=== PATIENT | male | born 1970 | race African-American/Black ===

== ENCOUNTER 2017-09-02 10:45 | Emergency (ER) | payer OTHER ==
[2017-09-02 10:57] VITALS: BP 152/95; PULSE 78; TEMP 98.3; BMI 35.5
--- NOTE | 2017-09-02 11:40 | PDOC ---
History of Present Illness - General Chief Complaint: Chest Pain Stated Complaint: CHEST PAIN Time Seen by Provider: 09/02/17 11:01 - History of Present Illness Initial Comments: 09/02/17 11:35 The patient is a 46 yo m w/ PMH DM, HTN, glaucoma (legally blind), acute pancreatitis comes into the ED c/o worsening chest pain for the past 8 months and syncopal episodes. The patient had a thoracoscopy and biopsy in October for a mediastinal mass (biopsy benign). Since this procedure, he has been complaining of numbness along the right side of his chest stretching from the center of the sternum to the right hand. The patient began regaining sensation in december, at which time he experienced a tearing, cramping, 7/10 pain in his right chest in the pectoral area. The pain is exacerbated by movement or touch and has no alleviating symptoms. The patient has been following with a pain management doctor and states that pain has been refractory to multiple oral medications and injections. The pain has been getting worse over time and became associated with multiple syncopal episodes. During these episodes, the patient describes feeling the pain, then lightheadedness before finding himself either leaning on his knee or prone on the floor. Patient does not remember the fall, only remembers waking up on the floor. Syncopal episodes are related to getting up either from a chair or from bed. Patient denies fever, chills, abdominal pain, palpitations. 09/02/17 13:48 Past History - Travel Traveled outside of the country in the last 30 days: No Close contact w/someone who was outside of country & ill: No - Past Medical History Allergies/Adverse Reactions: Allergies Allergy/AdvReac Type Severity Reaction Status Date / Time No Known Allergies Allergy Verified 09/02/17 10:53 Home Medications: Ambulatory Orders Gabapentin 300 mg PO TID #90 cap 09/02/17 Lisinopril 0 mg PO DAILY 09/02/17 Metformin HCl [Glucophage -] 500 mg PO BID 09/02/17 Simvastatin 20 mg PO DAILY 09/02/17 Diabetes: Yes HTN: Yes Other medical history: mediastinal mass, acute pancreatitis, glaucoma - Surgical History Cholecystectomy: Yes Lung Surgery: Yes (thorascopy and bx mediastinal mass) - Suicide/Smoking/Psychosocial Hx Smoking History: Never smoked Review of Systems - Review of Systems Constitutional: No: Chills, Fever, Malaise HEENTM: Yes: Other (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 No: Cough, SOB with Exertion Cardiac (ROS): Yes: Chest Pain, Lightheadedness. No: Palpitations, Chest Tightness ABD/GI: No: Symptoms Reported Musculoskeletal: Yes: Muscle Pain. No: Back Pain, Joint Pain Integumentary: No: Symptoms Reported Neurological: Yes: Numbness, Tingling *Physical Exam - Vital Signs Last Vital Signs Temp Pulse Resp BP Pulse Ox 98.3 F 78 19 152/95 96 09/02/17 10:53 09/02/17 10:53 09/02/17 10:53 09/02/17 10:53 09/02/17 10:53 - Physical Exam General Appearance: Yes: Appropriately Dressed. No: Apparent Distress HEENT: positive: EOMI. negative: MARYANN (pupil nonreactive to light on left) Neck: positive: Trachea midline. negative: Tender ED Treatment Course - LABORATORY CBC & Chemistry Diagram: 09/02/17 11:43 09/02/17 11:43 Medical Decision Making - Medical Decision Making 09/05/17 07:17 09/02/17 13:24 The patient is a 46 yo m w/ PMH DM, HTN, glaucoma comes into the ED c/o worsening chest and arm pain since december as well as multiple syncopal episodes. The patient's description of the pain is indicative of a nerve origin, though cardiac and pulmonary etiology must also be ruled out. The patient admits to not taking his gabapentin as prescribed. -CBC, CMP -cardiac profile -CTA Chest -ketorolac IV -CXR 09/02/17 16:00 -CXR, CTA, labs WNL -added lipase -contacted the patient's pain management doctor and the case was discussed. He agrees with the plan to reinforce the proper use of his gabapentin and follow up with him as scheduled. -will write for 300mg gabapentin TID -encouraged the importance of f/u -patient will be stable for discharge if his lipase returns WNL -Liase WNL, Patient d/c w/ instructions to f/u in the [facility] *DC/Admit/Observation/Transfer Diagnosis at time of Disposition: Neuropathic pain - Discharge Dispostion Disposition: HOME Admit: No - Prescriptions Prescriptions: Gabapentin 300 mg PO TID #90 cap - Referrals Referrals: STAFF,NOT ON [Primary Care Provider] - - Patient Instructions Printed Discharge Instructions: Neuropathic Pain, Gabapentin Additional Instructions: Please take your Gabapentin three times per day as prescribed. You should follow up with your pain management doctor as scheduled. If you experience worsening chest pain, worsening shortness of breath, fevers, chills or if any of your symptoms become worse, please call your doctor or return to the emergency department. - Post Discharge Activity
[2017-09-02 12:10] LABS: BASOPHIL 0.7 % (0-2.0); EOSINOPHIL 0.5 % (0-4.5); MCH 32.2 pg (25.7-33.7); MCHC 34.9 g/dl (32.0-35.9); MEAN CELL VOLUME 92.2 fl (80-96); MEAN PLT VOLUME 7.8 fl (7.5-11.1); NEUTROPHILS 60.9 % (42.8-82.8); PLATELET COUNT 324 K/MM3 (134-434); RDW 13.4 % (11.9-15.9); WHITE BLOOD COUNT 5.7 K/mm3 (4.0-10.0)
--- NOTE | 2017-09-02 12:10 | PDOC ---
Attending Attestation - Medical Decision Making 09/02/17 12:[address] Jose Calderon. [phone] 09/02/17 13:12 Placed [address] Sabine Stover with no successful attempts at speaking to anyone. Phone hangs up on other end after long dial tone. [phone] 09/02/17 14:[address] Calderon a second time. <oLna Bustamante A - Last Filed: 09/02/17 14:44> - Resident Resident Name: Deejay Red - ED Attending Attestation I have performed the following: I have examined & evaluated the patient, The case was reviewed & discussed with the resident, I agree w/resident's findings & plan, Exceptions are as noted - HPI HPI: 09/02/17 12:10 46 yo m w/ PMH DM, HTN, glaucoma (legally blind), acute pancreatitis presents to the ED c/o worsening chest pain for the past 5 months and syncopal episode last week. Pt reports that he had a biopsy for a chest mass 5 months ago ( benign by report of pt) at [facility] and since then, has had constant right sided, pleuritic chest pain that feels like needles and someone "clawing across his chest." He has seen his PMD for this pain (Dr. Stover) and she did a cardiac work up that was normal by his report. He also reports seeing a pain management doctor who prescribed gabapentin which he states doesn't help although he has not been taking it BID as prescribed. He presented to the ED today due to the persistence of his CP and because he had a syncopal episode last week. He describes watching TV last week when he stood up and felt severe pain on the R side of his chest, became lightheaded and passed out for less than 1 minute. No associated CP, diaphoresis, SOB, palpitations. Was back at his baseline within a few minutes. No tongue biting or urine incontinence. Denies head strike or injuries. No syncopal episodes since then. Has not been taking any other medications for pain control. Reports feeling SOB because of the pain when he breathes. Denies calf swelling or edema. Denies fevers, chills , SOB, N/V/D, diaphoresis, abd pain, LE edema, rashes, headache, weakness. - Physicial Exam PE: 09/02/17 12:41 GENERAL: Awake, alert, and fully oriented, in no acute distress HEAD: No signs of trauma EYES: PERRLA, EOMI, sclera anicteric, conjunctiva clear ENT: Auricles normal inspection, hearing grossly normal, nares patent, oropharynx clear without exudates. Moist mucosa NECK: Normal ROM, supple, no lymphadenopathy, JVD, or masses LUNGS: Breath sounds equal, clear to auscultation bilaterally. No wheezes, and no crackles HEART: Regular rate and rhythm, normal S1 and S2, no murmurs, rubs or gallops. + reproducible pain all along the R chest with minimal palpation of skin ABDOMEN: Soft, nontender, normoactive bowel sounds. No guarding, no rebound. No masses EXTREMITIES: Normal range of motion, no edema. No clubbing or cyanosis. No cords, erythema, or tenderness NEUROLOGICAL: Normal speech, cranial nerves intact, negative pronator drift, 5/ 5 strength in all 4 extremities, normal sensation to light touch in all 4 extremities, normal cerebellar exam, normal gait, normal reflexes and tone SKIN: Warm, Dry, normal turgor, no rashes or lesions noted. - Medical Decision Making Labs and CTA unremarkable. I spoke with the patient's pain management physician Dr. Calderon who recommends that we add a lipase to make sure this pain is not pancreatitis as pt has had pancreatitis in the past. Lipase was negative. Dr. Calderon recommends we encourage the patient to take his gabapentin ( 600mg TID) as prescribed which we discussed with the patient and his . I discussed the physical exam findings, ancillary test results and final diagnoses with the patient. I answered all of the patient's questions. The patient was satisfied with the care received and felt comfortable with the discharge plan and treatment plan. The patient will call their primary care physician within 24 hours to arrange follow-up and will return to the Emergency Department with any new, persistent or worsening symptoms. 09/02/17 12:43 46-year-old male history of hypertension, diabetes, biopsy 5 months ago of mass in his chest presents with 5 months of right-sided chest pain and a syncopal episode last week. Vitals are unremarkable. Exam with exquisite tenderness to palpation with minimal palpation of the right side of his chest. EKG is nonischemic. Syncopal episode appears to be triggered by pain, and is likely vasovagal in nature. Pt with no episodes since and syncope was not a/w cp, sob, diaphoresis, palpitations. Pain appears to be neuropathic secondary to this procedure and possible nerve damage however given his risk factors of recent surgery, hypertension, and diabetes will do a cardiac workup and CTA to evaluate for pulmonary embolism. Will also touch base with the patient's primary doctor and pain management doctor if ED workup is negative for a suitable DC plan. -labs -CXR -toradol -CTA -call pmd/pain management -reassess <Joselyn Portillo - Last Filed: 09/10/17 16:18> Heart Score/ECG Review - History History: Slightly suspicious - Electrocardiogram EKG: Normal - Age Age: 45-65 - Risk Factors Risk Factors Heart Score: Yes Hx Hypertension, Yes Hx Diabetes Based on the list above the patient has:: 1-2 risk factors - Troponin Troponin: </= normal limit - Score Heart Score - Total: 2 #1 09/02/17 12:42 Twelve-lead EKG was performed and reviewed by me. Normal sinus rhythm, rate 80. Normal intervals. No ST elevations or T-wave inversions. <Joselyn Portillo - Last Filed: 09/10/17 16:18>
[2017-09-02 12:33] LABS: ALBUMIN 4.3 g/dl (3.4-5.0); ANION GAP 12 (8-16); BILIRUBIN,TOTAL 0.6 mg/dL (0.2-1.0); CALCIUM 9.2 mg/dL (8.5-10.1); CO2 24 mmol/L (21-32); GLUCOSE,RANDOM 188 mg/dL (74-106); SGOT/AST 45 U/L (15-37); SGPT/ALT 109 U/L (12-78); TOT PROT 8.5 g/dl (6.4-8.2)
[2017-09-02 12:35] LABS: ALK PHOS 260 U/L (45-117); CPK 239 IU/L (39-308); TROPONIN I < 0.02 ng/ml (0.00-0.05)
[2017-09-02] MEDS ORDERED: KETOROLAC TROMETHAMINE 15 MG/ML VIAL IVPUSH ONE (12:54)
[2017-09-02] MEDS ORDERED: KETOROLAC TROMETHAMINE 15 MG/ML VIAL ONE (13:05)
--- NOTE | 2017-09-05 11:24 | EKG ---
Test Reason : Blood Pressure : / mmHG Vent. Rate : 080 BPM Atrial Rate : 080 BPM P-R Int : 160 ms QRS Dur : 080 ms QT Int : 358 ms P-R-T Axes : 043 -20 029 degrees QTc Int : 412 ms NORMAL SINUS RHYTHM POOR R WAVE PROGRESSION NO PREVIOUS ECGS AVAILABLE REPEAT EKG IF CLINICALLY INDICATED Confirmed by CARLOS CABA MD ([id number]) on 09/05/2017 11:23:36 AM Referred By: Confirmed By:CARLOS CABA MD
== END 2017-09-02 18:10 | disposition home or self-care (01) ==
LOC: JER 10:45
PROC: 3E0333Z Introduction of Anti-inflammatory into Peripheral Vein, Percutaneous Approach (ICD-10-PCS; principal; 2017-09-02)
DX: G58.8 Other specified mononeuropathies (principal); I10 Essential (primary) hypertension; E11.9 Type 2 diabetes mellitus without complications; H54.3 Unqualified visual loss, both eyes; K85.80 Other acute pancreatitis without necrosis or infection; R22.2 Localized swelling, mass and lump, trunk; Z79.84 Long term (current) use of oral hypoglycemic drugs
CPT/HCPCS: 36415; 71020-TC; 71275-TC; 80053; 82550; 82553; 83690; 84484; 85025; 93005; 93010; 96374; 99282-25